=== PATIENT | female | born 1995 | race African-American/Black ===

== ENCOUNTER 2018-02-13 23:21 | Emergency (ER) | payer MEDICAID ==
[~2018-02-13] VITALS: Ht 165.1 cm; Wt 57.0 kg
[~2018-02-13 23:21] MED LIST: PREN-88 PO
[2018-02-14 03:50] VITALS: BP 111/66
== END 2018-02-14 03:54 | disposition home or self-care (01) ==
LOC: ER 23:21
DX: H00.014 Hordeolum externum left upper eyelid (principal)
CPT/HCPCS: 99283

== ENCOUNTER 2018-04-20 16:56 | Emergency (ER) | payer MEDICAID ==
[~2018-04-20] VITALS: Ht 162.6 cm; Wt 56.0 kg
[2018-04-20 20:47] VITALS: BP 103/68
== END 2018-04-20 20:51 | disposition home or self-care (01) ==
LOC: ER 16:56
DX: J32.9 Chronic sinusitis, unspecified (principal); F12.10 Cannabis abuse, uncomplicated
CPT/HCPCS: 99283; Z7610; 99282

== ENCOUNTER 2019-04-22 17:48 | Emergency (ER) | payer MEDICAID ==
[~2019-04-22] VITALS: Ht 162.6 cm; Wt 60.0 kg
[2019-04-22] MEDS ORDERED: TETANUS, DIPHTHERIA, PERTUSSIS VAC/PF 0.5ML (>7YR OLD) IM ONE (21:00)
[2019-04-22] MEDS ORDERED: LIDOCAINE HCL/PF 1% 10 MG/ML 5ML VIAL IJ ONE (21:00)
[2019-04-22] MEDS ORDERED: IBUPROFEN 600MG TABLET PO ONE (21:00)
[2019-04-22] MEDS ORDERED: BACITRACIN ZINC OINT UDPKT TOP ONE (21:00)
[2019-04-22] MEDS ORDERED: BACITRACIN 15GM TUBE TOP NR (21:30)
[2019-04-22 22:03] VITALS: BP 114/67
== END 2019-04-22 22:08 | disposition home or self-care (01) ==
LOC: ER 17:48
DX: L02.215 Cutaneous abscess of perineum (principal); R03.0 Elevated blood-pressure reading, without diagnosis of hypertension; F12.90 Cannabis use, unspecified, uncomplicated; Z23 Encounter for immunization
CPT/HCPCS: 56405; 90471; 90715; 99284; J3490; Z7610

== ENCOUNTER 2020-07-01 13:55 | Emergency (ER) | payer MEDICAID ==
[~2020-07-01] VITALS: Ht 167.6 cm; Wt 54.0 kg
[2020-07-01] MEDS ORDERED: MORPHINE SULFATE 4 MG/ML CPJ (NOT FOR IM USE) IV STA (16:34)
[2020-07-01] MEDS ORDERED: ONDANSETRON HCL 4MG/2ML INJ IV STA (16:34)
[2020-07-01] MEDS ORDERED: SODIUM CHLORIDE 0.9% 1,000 ML IV ONE (16:45)
[2020-07-01 17:37] LABS: CLARITY URINE CLEAR (CLEAR); COLOR URINE YELLOW (YELLOW); KETONES URINE NEGATIVE (NEGATIVE); LEUKOCYTE ESTERASE URINE 2+ (NEGATIVE); NITRITE URINE NEGATIVE (NEGATIVE); OCCULT BLOOD URINE NEGATIVE (NEGATIVE); PH URINE 5.5 (4.5-8.0); PROTEIN URINE NEGATIVE (NEGATIVE); SPECIFIC GRAVITY URINE 1.021 (1.005-1.030); UROBILINOGEN URINE 0.2 E.U./dL (0.2-1.0)
[2020-07-01 17:38] LABS: BASOPHILS % 0.6 % (0.0-2.0); EOSINOPHILS % 3.1 % (0.0-5.0); HEMATOCRIT. 41.7 % (36.0-48.0); HEMOGLOBIN. 13.7 g/dL (12.0-16.0); LYMPHOCYTES % 35.1 % (20.0-50.0); MEAN CORPUSCULAR VOLUME 94.3 fL (81.0-99.0); MONOCYTES % 6.9 % (2.0-8.0); NEUTROPHILS % 54.3 % (40.0-76.0); PLATELET 172 x1000/uL (130-400); RED BLOOD CELL COUNT 4.43 mill/uL (4.2-5.4); RED CELL DISTRIBUTION WIDTH 13.1 % (11.6-14.6)
[2020-07-01 17:41] LABS: CHLORIDE 107 mEq/L (98-107)
[2020-07-01 17:44] LABS: PROTHROMBIN TIME 10.9 sec (9.6-11.0)
[2020-07-01] MEDS ORDERED: CEFTRIAXONE 1 G PREMIX 50 ML IV ONE (18:15)
[2020-07-01] MEDS ORDERED: ONDANSETRON HCL 4MG/2ML INJ IV ONE (18:15)
[2020-07-01] MEDS ORDERED: FENTANYL CITRATE/PF 50MCG/ML 2ML VIAL IV ONE (18:15)
[2020-07-01 20:06] VITALS: BP 101/63
== END 2020-07-01 20:47 | disposition home or self-care (01) ==
LOC: ER 14:17
DX: N39.0 Urinary tract infection, site not specified (principal); F12.10 Cannabis abuse, uncomplicated
CPT/HCPCS: 36415; 71045; 74177; 80053; 81003; 81025; 83690; 85025; 85610; 93005; 96374; 96375; 96376; 99285; J0696; J2270; J2405; J3010; J7030

== ENCOUNTER 2023-04-04 11:11 | Emergency (ER) | payer MEDICAID, OTHER ==
[~2023-04-04] VITALS: Ht 165.1 cm; Wt 59.0 kg
[2023-04-04 11:39] VITALS: TEMP 99; O2SAT 98
[2023-04-04] MEDS ORDERED: KETOROLAC 30MG/ML VIAL IM ONE (11:45)
[2023-04-04] MEDS ORDERED: DEXAMETHASONE 10 MG/ML VIAL PO ONE (11:45)
[2023-04-04 15:00] VITALS: BP 112/69; PULSE 117; RESP 18
[2023-04-04] MEDS ORDERED: DEXAMETHASONE 10 MG/ML VIAL PO NR (15:00)
[2023-04-04] MEDS ORDERED: KETOROLAC 30MG/ML VIAL IM NR (15:00)
[2023-04-04] MEDS ORDERED: NAPR-679 MT (15:06)
== END 2023-04-04 15:38 | disposition home or self-care (01) ==
LOC: ER 11:17
DX: J02.9 Acute pharyngitis, unspecified (principal); Z20.822 Contact with and (suspected) exposure to COVID-19
CPT/HCPCS: 87430; 87070; 96372; 99283; 87426; J1100; J1885; C9803; Z7610